=== PATIENT | female | born 1940 | race Caucasian/White ===

== ENCOUNTER → 2016-11-26 | Outpatient (CLI) | payer MEDICARE, OTHER ==
[~2016-11-26] MED LIST: ASP81TEC PO; ASPI-9 PO; CALC-80 PO; CYAN10007 PO; DIAZ5TAB PO; ERGO400C PO; FELO10TA31 PO; FLD5TCR PO; LEVO75TA6 PO; LOSA50TA6 PO; LVT.1T PO; MECL25TA3 PO; MELO-195 PO; MULT-608 PO; OMEG1CAP51 PO; OMEG1CAP53 PO; OMEP20TA2 PO; ONDA4TAB8 PO; PNT40TEC PO; SCOP1PAT TD; SIMV20TA3 PO; [UNRECOGNIZED DRUG - CODE] TP
== END ==
LOC: CARD 08:47
PROVIDERS: ATTEND Physician Assistant
DX: I65.23 Occlusion and stenosis of bilateral carotid arteries (principal); I25.10 Atherosclerotic heart disease of native coronary artery without angina pectoris; I10 Essential (primary) hypertension; E78.5 Hyperlipidemia, unspecified
CPT/HCPCS: 93306

== ENCOUNTER 2018-03-15 18:13 | Emergency (ER) | payer MEDICARE, OTHER ==
[~2018-03-15] VITALS: Ht 170.2 cm; Wt 70.3 kg
[~2018-03-15 18:13] MED LIST changes: -SCOP1PAT TD; +SCOP1PAT11 TD
--- NOTE | 2018-03-15 18:34 | ED Cardiac General ---
History of Present Illness General Stated Complaint: BP 224/110 /NAUSEA/DIARRHEA/COUGH Source: patient Exam Limitations: no limitations History of Present Illness Date Seen by Provider: Mar 15, 2018 Time Seen by Provider: 18:19 Initial Comments Patient presents to ER by private conveyance with chief complaint the past couple weeks she's noticed elevated blood pressures anywhere from 150 systolic following up to 200 systolic but tonight she said it was a 214/110 and this concerned her greatly so she decided to come in to be checked out. 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 She went to the walk-in clinic 3 days ago and they did not make any changes to her blood pressure medicine he was not near as high then. She says she's been having run-ins with some family lately this got her very stressed. She also stopped taking her losartan about 3 or 4 months ago because her blood pressure even when she was out working in the yard the normal in the 120s over 60s on just the amlodipine. She says Dr. Klein her primary care doctor is aware that she stop taking the losartan. She has not restarted it yet. She does not have diabetes nor does she ever smoke or use tobacco products. She does use Lipitor because she had some high cholesterol that she just recently started per Dr. Abarca. She also uses 75 g of Synthroid. She's never had a personal or primary family all history of coronary artery disease. She has no stroke or family stroke history. No history of cancer. She's had no weight loss or gain. She's not having any shortness of breath nausea sweats or pains. Allergies and Home Medications Allergies Coded Allergies: guaifenesin (Verified Allergy, Unknown, 05/05/08) hydrocodone (Verified Allergy, Unknown, 05/05/08) iodamide (Verified Allergy, Unknown, 06/16/08) potassium guaiacolsulfonate (Verified Allergy, Unknown, 05/05/08) propoxyphene (Verified Allergy, Unknown, 05/05/08) Home Medications Aspirin 81 Mg Tabec, 81 MG PO DAILY, (Reported) Calcium Carbonate/Vitamin D3 1 Each Tablet, 1 TAB PO BID, (Reported) Diazepam 5 Mg Tablet, 0.5-1 TAB PO Q4H Prescribed by: OLIVIA MCCANN on 02/10/15134 Felodipine 10 Mg Tab.sr.24h, 10 MG PO DAILY, (Reported) Levothyroxine Sodium 75 Mcg Tablet, 75 MCG PO DAILY, (Reported) Losartan Potassium 50 Mg Tablet, 50 MG PO DAILY, (Reported) Meclizine HCl 25 Mg Tablet, 1-2 TAB PO Q6H Prescribed by: OLIVIA MCCANN on 02/10/15134 Meloxicam 15 Mg Tablet, 15 MG PO DAILY, (Reported) [place]-3 Fatty Acids/Fish Oil 1 Each Capsule, 2,000 MG PO DAILY, (Reported) TAKES 2 (1000MG) CAPSULES IN THE MORNING [place]-3 Fatty Acids/Fish Oil 1 Each Capsule, 1,000 MG PO HS, (Reported) Ondansetron 4 Mg Tab.rapdis, 4 MG PO Q4H Prescribed by: OLIVIA MCCANN on 02/10/15134 Scopolamine 1 Each Patch.td72, 1 EACH TD Q72 HOURS Prescribed by: OLIVIA MCCANN on 02/10/15134 Simvastatin 20 Mg Tablet, 20 MG PO HS, (Reported) Patient Home Medication List Home Medication List Reviewed: Yes Review of Systems Review of Systems Constitutional: No chills, No diaphoresis, No fever; malaise EENTM: No Blurred Vision, No Double Vision Respiratory: Denies Cough, Denies Shortness of Air Cardiovascular: Denies Chest Pain, Denies Edema, Denies Irregular Heart Rate, Denies Lightheadedness, Denies Palpitations, Denies Syncope Gastrointestinal: Denies Abdominal Pain, Denies Constipated, Denies Diarrhea, Denies Nausea Genitourinary: Denies Burning, Denies Discharge Musculoskeletal: No back pain, No joint pain Skin: No pruritus, No rash Past Lqoxbea-Vpkskj-Ljypxu Hx Patient Social History Alcohol Use: Denies Use Recreational Drug Use: No Smoking Status: Never a Smoker 2nd Hand Smoke Exposure: Yes Recent Foreign Travel: No Contact w/Someone Who Travel: No Immunizations Up To Date Tetanus Booster (TDap): More than 5yrs PED Vaccines UTD: Yes Date of Pneumonia Vaccine: Jan 12, 2012 Date of Influenza Vaccine: Apr 13, 2013 Past Medical History Abdominal, Breast, Eye Surgery, Orthopedic Pneumonia, COPD Hypertension Female Reproductive Disorders: Denies 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 0oz. [id number]; BMI Method: General Appearance: No Apparent Distress, WD/WN, Anxious HEENT: PERRL/EOMI, Normal ENT Inspection, Pharynx Normal, Moist Mucous Membranes Neck: Full Range of Motion, Normal Inspection, Non Tender Respiratory: Chest Non Tender, Lungs Clear, Normal Breath Sounds, No Accessory Muscle Use, No Respiratory Distress Cardiovascular: Regular Rate, Rhythm, No Edema, Normal Peripheral Pulses Gastrointestinal: Non Tender, Soft Extremity: Normal Capillary Refill, Non Tender, No Calf Tenderness Neurologic/Psychiatric: Alert, Oriented x3, No Motor/Sensory Deficits Skin: Normal Color, Warm/Dry Progress/Results/Core Measures Results/Orders Lab Results Laboratory Tests Test 03/15/18 18:30 03/15/18 18:41 Range/Units White Blood Count 6.8 4.3-11.0 10^3/uL Red Blood Count 4.69 4.35-5.85 10^6/uL Hemoglobin 14.1 11.5-16.0 G/DL Hematocrit 44 35-52 % Mean Corpuscular Volume 94 80-99 FL Mean Corpuscular Hemoglobin 30 25-34 PG Mean Corpuscular Hemoglobin Concent 32 32-36 G/DL Red Cell Distribution Width 13.3 10.0-14.5 % Platelet Count 229 130-400 10^3/uL Mean Platelet Volume 11.0 H 7.4-10.4 FL Neutrophils (%) (Auto) 64 42-75 % Lymphocytes (%) (Auto) 26 12-44 % Monocytes (%) (Auto) 8 0-12 % Eosinophils (%) (Auto) 1 0-10 % Basophils (%) (Auto) 1 0-10 % Neutrophils # (Auto) 4.4 1.8-7.8 X 10^3 Lymphocytes # (Auto) 1.8 1.0-4.0 X 10^3 Monocytes # (Auto) 0.6 0.0-1.0 X 10^3 Eosinophils # (Auto) 0.1 0.0-0.3 10^3/uL Basophils # (Auto) 0.0 0.0-0.1 10^3/uL Sodium Level 136 135-145 MMOL/L Potassium Level 4.1 3.6-5.0 MMOL/L Chloride Level 100 98-107 MMOL/L Carbon Dioxide Level 25 21-32 MMOL/L Anion Gap 11 5-14 MMOL/L Blood Urea Nitrogen 17 7-18 MG/DL Creatinine 1.04 0.60-1.30 MG/DL Estimat Glomerular Filtration Rate 51 BUN/Creatinine Ratio 16 Glucose Level 110 H 70-105 MG/DL Calcium Level 9.5 8.5-10.1 MG/DL Corrected Calcium 9.2 8.5-10.1 MG/DL Total Bilirubin 0.6 0.1-1.0 MG/DL Aspartate Amino Transf (AST/SGOT) 21 5-34 U/L Alanine Aminotransferase (ALT/SGPT) 6 0-55 U/L Alkaline Phosphatase 99 40-136 U/L Troponin I < 0.30 <0.30 NG/ML B-Type Natriuretic Peptide 47.2 <100.0 PG/ML Total Protein 7.9 6.4-8.2 GM/DL Albumin 4.4 3.2-4.5 GM/DL Urine Color YELLOW Urine Clarity CLEAR Urine pH 6 5-9 Urine Specific [place] 1.015 L 1.016-1.022 Urine Protein NEGATIVE NEGATIVE Urine Glucose (UA) NEGATIVE NEGATIVE Urine Ketones 3+ H NEGATIVE Urine Nitrite NEGATIVE NEGATIVE Urine Bilirubin NEGATIVE NEGATIVE Urine Urobilinogen NORMAL NORMAL MG/DL Urine Leukocyte Esterase 2+ H NEGATIVE Urine RBC (Auto) 2+ H NEGATIVE Urine RBC 2-5 H /HPF Urine WBC 5-10 H /HPF Urine Squamous Epithelial Cells 5-10 /HPF Urine Crystals NONE /LPF Urine Bacteria FEW H /HPF Urine Casts NONE /LPF Urine Mucus NEGATIVE /LPF Urine Culture Indicated YES My Orders Orders - BAKARI GONZALES Troponin I (03/15/18 18:26) Chest 1 View, Ap/Pa Only (03/15/18 18:26) Ekg Tracing (03/15/18 18:26) Saline Lock/Iv-Start (03/15/18 18:26) Monitor-Rhythm Ecg Trace Only (03/15/18 18:26) BNP (03/15/18 18:26) Cbc With Automated Diff (03/15/18 18:26) Comprehensive Metabolic Panel (03/15/18 18:26) Ua Culture If Indicated (03/15/18 18:26) Urine Culture (03/15/18 18:41) Metoprolol Tartrate Injection (Lopressor (03/15/18 19:45) Ceftriaxone For Iv Use (Rocephin For I (03/15/18 20:00) Medications Given in ED Current Medications Medications Dose Ordered Sig/Cici Route Start Time Stop Time Status Last Admin Dose Admin Metoprolol Tartrate 5 mg ONCE ONCE IV 03/15/18 19:45 03/15/18 19:46 DC 03/15/18 19:44 5 MG Vital Signs/I&O 03/15/18 18:16 Temp 98.2 Pulse 99 Resp 20 B/P (MAP) 227/133 (164) Pulse Ox 98 Progress Progress Note #1: Time: 18:36 Progress Note Per her history this is been going on the past few weeks. We will recommend a good 30 minutes of rest in a quiet room and monitor her blood pressure. As long as it is heading down from 227/110 and will probably just reinitiate her losartan dose tonight and have her start that again in the morning at her regular home dose and keep her follow-up appointment for tomorrow afternoon with Dr. Klein. She is waiting we will also check EKG, troponin, basic labs and make sure there is no evidence of acute kidney failure or other signs of infection or anything else might be contributing to her sudden hypertension. Could be life stressors combined with her recent discontinuation of the losartan. At this time is only asymptomatic hypertension as she is not having any neurologic findings or chest pain or other concerning features. Echocardiogram by Dr. Abarca November 2016: Left ventricular cavity size is normal with increased wall thickness, hypertrophy and EF of 60-65%. Right and left atrium dilatation. Cardiac catheterization by Dr. Abarca 2012 demonstrates 30% stenosis in the mid LAD, 40% stenosis in the mid circumflex artery. Nonobstructive disease. Normal abdominal aorta and aortic root. Progress Note #2: Time: 20:09 Progress Note Plan to give the patient some Rocephin 100 mg and losartan and send her home to follow up with her primary care doctor in the morning. We'll give her a prescription for losartan as well. Initial ECG Impression Date: Mar 15, 2018 Initial ECG Impression Time: 18:28 Initial ECG Rate: 81 Initial ECG Rhythm: Normal Sinus Initial ECG Intervals: QT (506) Initial ECG Impression: Nonspecific Changes Initial ECG Comparisson: Unchanged Comment Ventricular hypertrophy. Right bundle branch block. No ST elevation or depression. Diagnostic Imaging Diagonstic Imaging: Xray Plain Films/CT/US/NM/MRI: chest (1v) Comments NAME: CARLOTA SCHRADER [facility] REC#: [id number] PHYSICIAN: BAKARI GONZALES MD CC: CHANDNI ANDERS MD; BAKARI GONZALES Page 1 of 1 RADIOLOGY REPORT [facility] [place] [place] CC: CHANDNI ANDRES MD; BAKARI GONZALES Page 1 of 1 RADIOLOGY REPORT NAME: CARLOTA SCHRADER [facility] REC#: [id number] PT STATUS: REG ER : 1940 PHYSICIAN: BAKARI GONZALES MD ADMIT DATE: 03/15/18/ER Signed Date of Exam: 03/15/18 CHEST 1 VIEW, AP/PA ONLY INDICATION: Elevated blood pressure. COMPARISON: Comparison is made with a previous chest radiograph from February 09, 2015. FINDINGS: The lungs appear hyperinflated suggesting air trapping and underlying COPD. There is no focal infiltrate or consolidation. There is no effusion or pneumothorax. Heart size appears appropriate, and pulmonary vascularity appears appropriate without evidence of failure. IMPRESSION: 1. Pulmonary hyperinflation suggests air trapping and possible underlying COPD. No acute superimposed cardiopulmonary process evident. Dictated by: Dictated on workstation # [id number] Dict: 03/15/181854 Trans: 03/15/181905 Interpreted by: CHANDNI ANDERS MD Electronically signed by: CHANDNI ANDERS MD 03/15/181905 \\ Reviewed: Reviewed by Me Departure Impression Primary Impression: Asymptomatic hypertensive urgency Additional Impression: UTI (urinary tract infection) Qualified Codes: N30.01 - Acute cystitis with hematuria Disposition: HOME, SELF-CARE Condition: Improved (ERASED) Departure-Patient Inst. Decision time for Depature: 20:09 Referrals: LASHONDA KLEIN DO (PCP/Family) Primary Care Physician Patient Instructions: High Blood Pressure (DC) Add. 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 Follow up with Dr Klein at the scheduled appt. Scripts Losartan Potassium (Losartan Potassium) 100 Mg Tablet 100 MG PO DAILY for 7 Days, #7 TAB 0 Refills Prov: BAKARI GONZALES 03/15/18 Copy Copies To 1: LASHONDA KLEIN TITUS J Mar 15, 2018 18:34
[2018-03-15 18:42] LABS: BASOPHILS % (AUTO) 1 % (0-10); EOSINOPHILS # (AUTO) 0.1 10^3/uL (0.0-0.3); EOSINOPHILS % (AUTO) 1 % (0-10); HEMATOCRIT 44 % (35-52); HEMOGLOBIN 14.1 G/DL (11.5-16.0); LYMPHOCYTES # (AUTO) 1.8 X 10^3 (1.0-4.0); LYMPHOCYTES % (AUTO) 26 % (12-44); MEAN CORPUSCULAR HEMOGLOBIN 30 PG (25-34); MEAN CORPUSCULAR HGB CONC 32 G/DL (32-36); MEAN CORPUSCULAR VOLUME 94 FL (80-99); MONOCYTES # (AUTO) 0.6 X 10^3 (0.0-1.0); MONOCYTES % (AUTO) 8 % (0-12); NEUTROPHILS # (AUTO) 4.4 X 10^3 (1.8-7.8); NEUTROPHILS % (AUTO) 64 % (42-75); PLATELET COUNT 229 10^3/uL (130-400); RED BLOOD COUNT 4.69 10^6/uL (4.35-5.85); RED CELL DISTRIBUTION WIDTH 13.3 % (10.0-14.5); WHITE BLOOD COUNT 6.8 10^3/uL (4.3-11.0)
[2018-03-15 18:50] LABS: BILIRUBIN,URINE NEGATIVE (NEGATIVE); CLARITY,URINE CLEAR; COLOR,URINE YELLOW; GLUCOSE, URINE (UA) NEGATIVE (NEGATIVE); KETONES,URINE 3+ (NEGATIVE); LEUKOCYTE ESTERASE ,URINE 2+ (NEGATIVE); NITRITE,URINE NEGATIVE (NEGATIVE); PH,URINE 6 (5-9); PROTEIN,URINE NEGATIVE (NEGATIVE); UROBILINOGEN,URINE NORMAL (NORMAL)
[2018-03-15 18:58] LABS: BACTERIA,URINE FEW /HPF
--- NOTE | 2018-03-15 19:01 | Diagnostic Imaging Report ---
INDICATION: Elevated blood pressure. COMPARISON: Comparison is made with a previous chest radiograph from February 09, 2015. FINDINGS: The lungs appear hyperinflated suggesting air trapping and underlying COPD. There is no focal infiltrate or consolidation. There is no effusion or pneumothorax. Heart size appears appropriate, and pulmonary vascularity appears appropriate without evidence of failure. IMPRESSION: 1. Pulmonary hyperinflation suggests air trapping and possible underlying COPD. No acute superimposed cardiopulmonary process evident. Dictated by: Dictated on workstation # [id number]
[2018-03-15 19:02] LABS: ALBUMIN 4.4 GM/DL (3.2-4.5); BILIRUBIN,TOTAL 0.6 MG/DL (0.1-1.0); CALCIUM 9.5 MG/DL (8.5-10.1); CREATININE SERUM 1.04 MG/DL (0.60-1.30); POTASSIUM 4.1 MMOL/L (3.6-5.0); TOTAL PROTEIN 7.9 GM/DL (6.4-8.2)
[2018-03-15] MEDS ORDERED: meTOprolol 5 MG/5 ML (LOPRESSOR) VIAL IV ONE (19:45)
[2018-03-15] MEDS ORDERED: cefTRIAXone FOR IV USE 1,000 MG in NS (IVPB) 50 ML IV ONE (20:00)
[2018-03-15] MEDS ORDERED: LOSARTAN 100 MG (COZAAR) TABLET PO ONE (20:15)
[2018-03-15] MEDS ORDERED: LOSA100T8 PO (20:17)
[2018-03-15] MEDS ORDERED: CEPH-507 PO (20:37)
[2018-03-15 20:39] VITALS: BP 207/105
== END 2018-03-15 20:40 | disposition home or self-care (01) ==
LOC: EDUNIT# 18:13 → ER 18:14
DX: I16.0 Hypertensive urgency (principal); N39.0 Urinary tract infection, site not specified; E78.00 Pure hypercholesterolemia, unspecified; J44.9 Chronic obstructive pulmonary disease, unspecified; I10 Essential (primary) hypertension; E03.9 Hypothyroidism, unspecified; K21.9 Gastro-esophageal reflux disease without esophagitis; Z87.19 Personal history of other diseases of the digestive system; Z82.49 Family history of ischemic heart disease and other diseases of the circulatory system; Z80.0 Family history of malignant neoplasm of digestive organs; Z79.82 Long term (current) use of aspirin; Z88.5 Allergy status to narcotic agent; Z88.8 Allergy status to other drugs, medicaments and biological substances; Z77.22 Contact with and (suspected) exposure to environmental tobacco smoke (acute) (chronic); Z87.01 Personal history of pneumonia (recurrent)
CPT/HCPCS: 36415; 71045; 80053; 81000; 83880; 84484; 85025; 87077; 87088; 93005; 93041

== ENCOUNTER 2018-12-15 05:37 | Outpatient (CLI) | payer MEDICARE, OTHER ==
[~2018-12-15] VITALS: Ht 170.2 cm; Wt 70.3 kg
[~2018-12-15 05:37] MED LIST changes: +CEPH-507 PO; +LOSA100T57 PO
[2018-12-15] MEDS ORDERED: ASPI-999 PO (11:40)
[2018-12-15] MEDS ORDERED: FELO5TAB3 PO (11:40)
[2018-12-15] MEDS ORDERED: CALC600T12 PO (11:40)
[2018-12-15] MEDS ORDERED: LEVO75TA6 PO (11:40)
[2018-12-15] MEDS ORDERED: MULT-351 PO (11:40)
[2018-12-15] MEDS ORDERED: OMEG-77 PO (11:40)
== END 2018-12-15 11:44 | disposition home or self-care (01) ==
LOC: PREOP 05:37
PROVIDERS: ATTEND Specialist
DX: Z01.818 Encounter for other preprocedural examination (principal)

== ENCOUNTER 2018-12-17 08:33 | Day surgery (SDC) | payer MEDICARE, OTHER ==
[~2018-12-17] VITALS: Ht 170.2 cm; Wt 70.3 kg
[~2018-12-17 08:33] MED LIST changes: +ASPI-999 PO; +CALC600T12 PO; +FELO5TAB3 PO; +MULT-351 PO; +OMEG-77 PO
[2018-12-17 08:45] VITALS: BP 198/93
[2018-12-17] MEDS ORDERED: LIDOCAINE PF 1% 2 ML AMP IR PRN (08:45)
[2018-12-17] MEDS ORDERED: TIMOLOL MALEATE 0.5% 5 ML (TIMOPTIC) BTL OU PRN (08:45)
[2018-12-17] MEDS ORDERED: MOXIFLOXACIN OPHTH SOLN 5 MG/ML 0.3 ML SYRINGE OP ONE (08:45)
[2018-12-17] MEDS ORDERED: POVIDONE (BETADINE) OPHTH SOLN 5% 30 ML OP ONE (08:45)
[2018-12-17] MEDS: TETRACAINE 0.5% OPHTH SOLN 4 ML BTL (SINGLE DOSE ONLY) OU PRN ×4 (08:48→09:12)
[2018-12-17] MEDS: PHENYLEPHRINE 10% OPHTH (NEO-SYN) 5 ML BTL OU SCH ×3 (08:58→09:12)
[2018-12-17] MEDS: CYCLOPENTOLATE 1% (CYCLOGYL) 2 ML DROPS OP SCH ×3 (08:58→09:12)
[2018-12-17] MEDS ORDERED: MIDAZOLAM 2 MG/2 ML (VERSED) VIAL ONE (09:07)
--- NOTE | 2018-12-17 09:32 | Ophthalmologist Pre-Op Note ---
Pre-Operative Progress Note H&P Reviewed The H&P was reviewed, patient examined and no changes noted. Date H&P Reviewed: Dec 17, 2018 Time H&P Reviewed: 09:32 Pre-Op Dx Cataract, Left Eye ALFONZO MEDEIROS MD Dec 17, 2018 09:32
[2018-12-17] MEDS ORDERED: acetaZOLAMIDE ER 500 MG CAP (DIAMOX SEQUELS) PO ONE (10:00)
--- NOTE | 2018-12-17 10:02 | Ophthalmology Operative Report ---
Cataract removal/placement IOL PREOPERATIVE DIAGNOSIS: Cataract Left Eye POSTOPERATIVE DIAGNOSIS: Cataract Left Eye PROCEDURE: Cataract removal and placement of posterior chamber implant, left eye SURGEON: Lyndon Medeiros ANESTHESIA: Topical with sedation COMPLICATIONS: None ESTIMATED BLOOD LOSS: Minimal DESCRIPTION OF PROCEDURE: After proper informed consent was obtained, the patient, a 78 female, was taken to the Operating Room and the left eye was anesthetized with tetracaine. The left eye was then prepped and draped in the usual manner. A wire lid speculum was placed. A paracentesis was made at the left hand position. Preservative free lidocaine was injected into the anterior chamber followed by viscoelastic. A clear corneal incision was made in the temporal position. A capsulorrhexis was preformed and the central nuclear and cortical material were removed. The posterior capsule was polished and an Ga 19.5 [id number] was placed into the capsular bag. The residual viscoelastic was aspirated and balanced saline solution was injected into the anterior chamber. Moxifloxacin was injected into the anterior chamber. The wound was checked and found to be water tight. The patient tolerated the procedure well without complications. LYNDON MEDEIROS MD Dec 17, 2018 10:02
[2018-12-17 10:09] VITALS: BP 198/83
--- NOTE | 2018-12-17 13:19 | Anesthesia-General Post-Op ---
MAC Patient Condition Mental Status/LOC: Same as Preop Cardiovascular: Satisfactory Nausea/Vomiting: Absent Respiratory: Satisfactory Pain: Controlled Complications: Absent Post Op Complications Complications None Follow Up Care/Instructions Patient Instructions None needed. Anesthesiology Discharge Order Discharge Order Patient was seen after the procedure and she was doing well, no complaints, stable vital signs, no apparent adverse anesthesia problems. CURT CAMEJO DO Dec 17, 2018 13:19
== END 2018-12-17 10:09 | disposition home or self-care (01) ==
LOC: SDC 08:33
PROVIDERS: ATTEND Specialist
DX: H25.12 Age-related nuclear cataract, left eye (principal); M19.90 Unspecified osteoarthritis, unspecified site; E03.9 Hypothyroidism, unspecified; I10 Essential (primary) hypertension; E78.00 Pure hypercholesterolemia, unspecified; Z88.3 Allergy status to other anti-infective agents; Z83.511 Family history of glaucoma; Z80.0 Family history of malignant neoplasm of digestive organs; Z79.82 Long term (current) use of aspirin; Z79.899 Other long term (current) drug therapy

== ENCOUNTER → 2020-12-19 | Outpatient (CLI) | payer MEDICARE, OTHER ==
[~2020-12-19] MED LIST changes: -CALC600T12 PO; +CALC600T91 PO; -FELO5TAB3 PO; +HOLD METFORMIN - RECEIVED CONTRAST 20 ML VIAL IV SCH; +IOHEXOL 350 MG/ML 100 ML (OMNIPAQUE 350) VIAL IV ONE; +NS 100 ML (IVPB) BAG IV ONE
--- NOTE | 2020-12-19 09:19 | Diagnostic Imaging Report ---
PROCEDURE: CT neck soft tissue with contrast. TECHNIQUE: Multiple contiguous axial images were obtained through the neck after the administration of contrast. Auto Exposure Controls were utilized during the CT exam to meet ALARA standards for radiation dose reduction. INDICATION: Right-sided swelling. Symptoms began 3 months ago. COMPARISON: 06/21/2007. Findings: A partially necrotic, pathologically enlarged lymph node is seen in the right level 2 station measuring 2.2 x 2.1 cm and 3.5 cm craniocaudal. Scattered mildly prominent cervical lymph nodes are seen bilaterally. No soft tissue mass or fluid collection is seen in the neck. The posterior nasopharynx and oropharynx demonstrate appropriate symmetry. Bilateral tonsilloliths are noted in the palatine tonsils. There is no displacement of the parapharyngeal fat planes. There is no abnormal process evident within the prevertebral or retropharyngeal space. There is no evidence of abnormal thickening of the epiglottis or aryepiglottic folds. The vocal folds appear symmetric. The parotid, submandibular and thyroid gland are unremarkable. The vascular structures the neck demonstrate no evidence of high-grade stenosis on this nondedicated exam. The visualized lung apices are clear. The visualized intracranial contents demonstrate no evidence of pathologic intracranial enhancement or intracranial mass effect. Visualized orbital contents are unremarkable. The visualized paranasal sinuses are clear. The mastoids and middle ears are clear. No acute osseous abnormality in the cervical spine. Impression: 1. Pathologically enlarged lymph node in the right level 2 cervical lymph node chain. This demonstrates partial necrosis. No mass is seen within the aerodigestive tract. Recommend correlation with patient history and if indicated biopsy/FNA of the lymph node under ultrasound guidance. 2. Unremarkable aerodigestive tract. No discrete mass or evidence of airway compromise. Dictated by: Dictated on workstation # [id number]
== END ==
LOC: RAD 08:28
PROVIDERS: ATTEND Internal Medicine
DX: R22.1 Localized swelling, mass and lump, neck (principal)
CPT/HCPCS: 70491

== ENCOUNTER → 2020-12-24 | Day surgery (SDC) | payer MEDICARE, OTHER ==
[~2020-12-24] MED LIST changes: -HOLD METFORMIN - RECEIVED CONTRAST 20 ML VIAL IV SCH; -IOHEXOL 350 MG/ML 100 ML (OMNIPAQUE 350) VIAL IV ONE; +LIDOCAINE 1% INJ 20 ML 20 ML VIAL INJ ONE; -NS 100 ML (IVPB) BAG IV ONE
--- NOTE | 2020-12-24 14:02 | Diagnostic Imaging Report ---
INDICATION: Large right neck lymph node. Patient presents for ultrasound-guided biopsy. Patient brought to the procedure and placed on table in the supine position. Ultrasound imaging of the right neck was performed to evaluate appropriate entry site. Right neck was then prepped and draped in usual sterile fashion. Small amount of 1% lidocaine was utilized for local anesthesia. Total of 4 passes were made into the enlarged right neck lymph node utilizing a 18-gauge Temno needle. Core biopsies were obtained. Needle was removed and hemostasis was obtained. Patient tolerated the procedure well and left the department in stable condition. IMPRESSION: Successful ultrasound guided core biopsy of enlarged right neck lymph node. Pathology results are currently pending. Dictated by: Dictated on workstation # [id number]
== END ==
LOC: RAD 12:30
PROVIDERS: ATTEND Internal Medicine
DX: C77.0 Secondary and unspecified malignant neoplasm of lymph nodes of head, face and neck (principal)
CPT/HCPCS: 76942; 88184; 88185; 88305; 88342; 88344

== ENCOUNTER → 2021-01-01 | Outpatient (CLI) | payer MEDICARE, OTHER ==
[~2021-01-01] MED LIST changes: -LIDOCAINE 1% INJ 20 ML 20 ML VIAL INJ ONE
--- NOTE | 2021-01-01 09:15 | Diagnostic Imaging Report ---
INDICATION: Cough. COMPARISON: 03/15/2018. FINDINGS: The heart size is normal. The mediastinum is unremarkable. There is no pleural effusion, pneumothorax, or pneumonia. There does appear to be some air trapping. IMPRESSION: Air trapping, likely reflecting some degree of COPD; otherwise, unremarkable single view chest. Dictated by: Dictated on workstation # [id number]
== END ==
LOC: RAD 08:25
PROVIDERS: ATTEND Internal Medicine
DX: R05 Cough (principal)
CPT/HCPCS: 71045

== ENCOUNTER → 2021-01-15 | Outpatient (CLI) | payer MEDICARE, OTHER ==
[~2021-01-15] MED LIST changes: +SCOP1PAT10 TD; -SCOP1PAT11 TD
--- NOTE | 2021-01-15 14:14 | Diagnostic Imaging Report ---
INDICATION: Squamous cell carcinoma of the head and neck, initial staging. Serum blood glucose level at the time of injection is 106 mg/dL. Patient was administered 14.8 mCi F-18 FDG intravenously in the right antecubital location and PET imaging was performed from the top of skull to mid thighs. Noncontrast CT was also performed for attenuation correction and anatomic correlation. There are no prior PET/CT studies available for comparison. Comparison is made with the CT neck study from 12/19/2020. There is symmetric activity throughout the brain. Hypermetabolic lymph node in the right neck is noted with an SUV max proximates 13. This is the recently biopsied neck lymph node. There is also a hypermetabolic focus in the region of the base of the tongue on the right side with an SUV max of 8.8. Direct visualization of this area is recommended. No other metabolic foci in the neck is identified. There is some mildly hypermetabolic foci in the jurgen bilaterally with an SUV max of 4 on the right and 4 on the left, indeterminate. No hypermetabolic pulmonary parenchymal foci are identified. There is physiologic activity throughout the gastrointestinal and genitourinary tracts of abdomen and pelvis. No suspicious hypermetabolic foci are identified. IMPRESSION: Hypermetabolic right neck lymph node correlating with the large node that was recently biopsied. There is an area of hypermetabolism near the base of the tongue on the right side which could represent a site of primary malignancy. Direct visualization is recommended. Otherwise PET/CT study is unremarkable apart from small mildly hypermetabolic foci in the jurgen bilaterally which are indeterminate. Dictated by: Dictated on workstation # [id number]
== END ==
LOC: RAD 09:45
PROVIDERS: ATTEND Internal Medicine Hematology & Oncology
DX: C76.0 Malignant neoplasm of head, face and neck (principal)
CPT/HCPCS: 78815; A9552

== ENCOUNTER 2021-01-16 10:12 | Outpatient (RCR) | payer MEDICARE, OTHER ==
[2021-03-12] MEDS ORDERED: CEPH500T PO (06:50)
== END 2021-04-08 | disposition home or self-care (01) ==
LOC: ONC 10:12
PROVIDERS: ATTEND Internal Medicine Hematology & Oncology
DX: C44.42 Squamous cell carcinoma of skin of scalp and neck (principal); I10 Essential (primary) hypertension; J44.9 Chronic obstructive pulmonary disease, unspecified; E03.9 Hypothyroidism, unspecified; E78.2 Mixed hyperlipidemia
CPT/HCPCS: 99213; 99214

== ENCOUNTER 2021-03-12 04:41 | Emergency (ER) | payer MEDICARE, OTHER ==
[~2021-03-12] VITALS: Ht 172.7 cm; Wt 72.6 kg
--- NOTE | 2021-03-12 05:28 | ED EENT ---
History of Present Illness General Chief Complaint: Post OP Complications/Pain Stated Complaint: POST OP THROAT SURGERY-BLEEDING Nursing Triage Note: Pt reports that she awoke this morning spitting up blood. She is s/p cx sx removing spots from tongue, lymph nodes, and tonsils. She noticed the bleeding 2 days ago and saw her specialist 03/11 for suture removal. 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 She had surgery on March [address] Rodrigue Garcia in [place] for resection of the right tonsil and part of the tongue. 13 lymph nodes were also removed. Patient noted some bleeding 2 days ago. She had follow-up yesterday to have sutures removed. Tonight she noted some bleeding around 0030 and coughed up a clot. She took ice water. She coughed up another clot at 0430. She therefore came to the ER for further evaluation. She denies any si gnificant pain. She states her pain with swallowing has significantly decreased since surgery. She does feel weak. Her primary care provider is Dr. Klein. She denies use of any blood thinning medications. Allergies and Home Medications Allergies Coded Allergies: Iodinated Contrast Media (Verified Allergy, Mild, ITCHING, 12/15/18) acetaminophen (Verified Allergy, Unknown, 03/12/21) propoxyphene (Verified Allergy, Unknown, 03/12/21) Patient Home Medication List Home Medication List Reviewed: Yes Aspirin (Aspirin) 81 Mg Tab.chew, 81 MG PO DAILY, (Reported) Entered as Reported by: PAZ SIMMONS on 12/15/18 1140 Calcium Carbonate (Calcium) 600 Mg Tablet, 600 MG PO DAILY, (Reported) Entered as Reported by: PAZ SIMMONS on 12/15/18 1140 Felodipine (Felodipine ER) 5 Mg Tab.er.24h, 5 MG PO DAILY, (Reported) Entered as Reported by: PAZ SIMMONS on 12/15/18 1140 Levothyroxine Sodium (Levothyroxine Sodium) 75 Mcg Tablet, 75 MCG PO DAILY, (Reported) Entered as Reported by: PAZ SIMMONS on 12/15/18 1140 Multivitamin (Daily Vitamin Formula) 1 Each Tablet, 1 EACH PO DAILY, (Reported) Entered as Reported by: PAZ SIMMONS on 12/15/18 1140 [place]-3 Fatty Acids/Fish Oil (Fish Oil 1,000 mg Softgel) 1 Each Capsule, 1 EACH PO DAILY, (Reported) Entered as Reported by: PAZ SIMMONS on 12/15/18 1140 Review of Systems Review of Systems Constitutional: see HPI Eyes: No Symptoms Reported Ears: No Symptoms Reported Nose: no symptoms reported Mouth: see HPI Throat: see HPI Respiratory: no symptoms reported Cardiovascular: no symptoms reported Gastrointestinal: no symptoms reported : No Musculoskeletal: no symptoms reported Skin: no symptoms reported Neurological: No Symptoms Reported Hematologic/Lymphatic: No Symptoms Reported Immunological/Allergic: no symptoms reported Past Hrbwgmp-Kjucke-Gnnkob Hx Patient Social History Tobacco Use?: No Use of E-Cig and/or Vaping dev: No Substance use?: No Alcohol Use?: No Pt feels they are or have been: No Immunizations Up To Date Tetanus Booster (TDap): More than 5yrs PED Vaccines UTD: Yes Influenza Vaccine Up-to-Date: Yes; Up-to-Date First/Initial COVID19 Vaccinat: none Past Medical History Surgery/Hospitalization HX: cx removal of tonsil, tongue, and lymph nodes 03/01/21 Surgeries: Yes (RIGHT SHOULDER PIN -2005, X2 BIOPSIES RIGHT BREAST, HERNIA REPAIR, CATARACT) Abdominal, Breast, Eye Surgery, Orthopedic, Tonsillectomy (Right neck dissection with right tonsillectomy, partial tongue resection, and resection of 13 lymph nodes.) Respiratory: Yes Pneumonia, COPD Cardiac: Yes Hypertension Neurological: No 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 Sexually Transmitted Disease: No HIV/AIDS: No Gastrointestinal: Yes Gastroesophageal Reflux, Hiatal Hernia Musculoskeletal: Yes Arthritis Endocrine: Yes Hypothyroidsim Cataract Loss of Vision: Denies Hearing Impairment: Denies Cancer: No Psychosocial: No Integumentary: No Blood Disorders: No Adverse Reaction/Blood Tranf: No Family Medical History Cancer of colon 03 MOTHER Cataract 03 MOTHER Heart disease 09 BROTHER 09 SISTER Kidney disease 09 SISTER Stroke 03 FATHER Physical Exam Vital Signs Vital Signs - First Documented 03/12/21 04:49 Temp 36.4 Pulse 89 Resp 24 B/P (MAP) 159/82 (107) Pulse Ox 100 O2 Delivery Room Air Height, Weight, BMI Height: 5'7.00" Weight: 155lbs. 0.0oz. [id number]; 24.00 BMI Method:Stated General Appearance: WD/WN, no apparent distress, other (Appears somewhat uncomfortable) Eyes: bilateral eye normal inspection, bilateral eye PERRL, bilateral eye EOMI Ears: bilateral ear auricle normal Nose: normal inspection; No active bleeding Mouth/Throat: other (Right tonsillar wound with dark-colored blood on the surface but no active bleeding. No other sources of active bleeding identified.) Neck: other (Incision clean, dry, and intact. 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, no motor/sensory deficits, alert, oriented x 3, other (Slightly anxious) Skin: normal color, warm/dry, ecchymosis Progress/Results/Core Measures Results/Orders Lab Results Laboratory Tests Test 03/12/21 05:20 03/12/21 05:30 Range/Units White Blood Count 4.5 4.3-11.0 10^3/uL Red Blood Count 4.28 3.80-5.11 10^6/uL Hemoglobin 12.8 11.5-16.0 g/dL Hematocrit 39 35-52 % Mean Corpuscular Volume 92 80-99 fL Mean Corpuscular Hemoglobin 30 25-34 pg Mean Corpuscular Hemoglobin Concent 33 32-36 g/dL Red Cell Distribution Width 13.6 10.0-14.5 % Platelet Count 341 130-400 10^3/uL Mean Platelet Volume 10.5 9.0-12.2 fL Immature Granulocyte % (Auto) 1 % Neutrophils (%) (Auto) 55 42-75 % Lymphocytes (%) (Auto) 29 12-44 % Monocytes (%) (Auto) 11 0-12 % Eosinophils (%) (Auto) 4 0-10 % Basophils (%) (Auto) 1 0-10 % Neutrophils # (Auto) 2.5 1.8-7.8 10^3/uL Lymphocytes # (Auto) 1.3 1.0-4.0 10^3/uL Monocytes # (Auto) 0.5 0.0-1.0 10^3/uL Eosinophils # (Auto) 0.2 0.0-0.3 10^3/uL Basophils # (Auto) 0.0 0.0-0.1 10^3/uL Immature Granulocyte # (Auto) 0.0 0.0-0.1 10^3/uL Prothrombin Time 12.9 12.2-14.7 SEC INR Comment 0.9 0.8-1.4 Activated Partial Thromboplast Time 35 24-35 SEC Sodium Level 138 135-145 MMOL/L Potassium Level 3.6 3.6-5.0 MMOL/L Chloride Level 104 98-107 MMOL/L Carbon Dioxide Level 23 21-32 MMOL/L Anion Gap 11 5-14 MMOL/L Blood Urea Nitrogen 12 7-18 MG/DL Creatinine 0.76 0.60-1.30 MG/DL Estimat Glomerular Filtration Rate 73 BUN/Creatinine Ratio 16 Glucose Level 107 H 70-105 MG/DL Calcium Level 9.1 8.5-10.1 MG/DL Corrected Calcium 9.6 8.5-10.1 MG/DL Magnesium Level 1.7 1.6-2.4 MG/DL Total Bilirubin 0.4 0.1-1.0 MG/DL Aspartate Amino Transf (AST/SGOT) 23 5-34 U/L Alanine Aminotransferase (ALT/SGPT) 19 0-55 U/L Alkaline Phosphatase 144 H 40-136 U/L Total Protein 6.8 6.4-8.2 GM/DL Albumin 3.4 3.2-4.5 GM/DL Thyroid Stimulating Hormone (TSH) 6.02 H 0.35-4.94 UIU/ML Free Thyroxine 1.16 0.70-1.48 NG/DL Urine Color YELLOW Urine Clarity CLEAR Urine pH 7.5 5-9 Urine Specific [place] 1.010 L 1.016-1.022 Urine Protein NEGATIVE NEGATIVE Urine Glucose (UA) NEGATIVE NEGATIVE Urine Ketones NEGATIVE NEGATIVE Urine Nitrite NEGATIVE NEGATIVE Urine Bilirubin NEGATIVE NEGATIVE Urine Urobilinogen 0.2 < = 1.0 MG/DL Urine Leukocyte Esterase 2+ H NEGATIVE Urine RBC (Auto) NEGATIVE NEGATIVE Urine RBC NONE /HPF Urine WBC 5-10 H /HPF Urine Squamous Epithelial Cells 5-10 /HPF Urine Crystals NONE /LPF Urine Bacteria TRACE /HPF Urine Casts NONE /LPF Urine Mucus SMALL H /LPF Urine Culture Indicated YES My Orders Orders - NY LOUIS MD Cbc With Automated Diff (03/12/21 05:08) Comprehensive Metabolic Panel (03/12/21 05:08) Magnesium (03/12/21 05:08) Protime With Inr (03/12/21 05:08) Partial Thromboplastin Time (03/12/21 05:08) Ua Culture If Indicated (03/12/21 05:08) Ed Iv/Invasive Line Start (03/12/21 05:08) Thyroid Stimulating Hormone (03/12/21 05:09) Free T4 (Free Thyroxine) (03/12/21 05:09) Urine Culture (03/12/21 05:30) Lactated Ringers (Lr 1000 Ml Iv Solution (03/12/21 06:45) Ceftriaxone 1 Gm Pre-Mix (Rocephin 1 Gm (03/12/21 06:38) Vital Signs/I&O 03/12/21 03/12/21 03/12/21 04:49 05:24 06:15 Temp 36.4 36.4 Pulse 89 89 Resp 24 24 B/P (MAP) 159/82 (107) 159/82 Pulse Ox 100 100 O2 Delivery Room Air Room Air Blood Pressure Mean: 107 Progress Progress Note #1: Time: 05:33 Progress Note There is no active bleeding at this time. We are checking her labs and will monitor her condition during that time. Progress Note #2: Time: 06:43 Progress Note Patient has been resting quietly. Labs were relatively unremarkable. She has noted very little bleeding. On examination she has scant amount of red blood in the mucus at the posterior pharynx. There appears to be no active bleeding at this time. Patient states she would appreciate some IV hydration because she is having difficulty drinking due to pain with swallowing. Urinary tract infection was noted on urinalysis and she is being treated with Rocephin. Departure Impression Primary Impression: Postoperative bleeding from mouth Additional Impressions: Fatigue Qualified Codes: R53.83 - Other fatigue Urinary tract infection Qualified Codes: N39.0 - Urinary tract infection, site not specified Disposition: 01 HOME, SELF-CARE Condition: Improved Departure-Patient Inst. Referrals: LASHONDA KLEIN DO (PCP/Family) Primary Care Physician Patient Instructions: Urinary Tract Infections in Adults Add. Discharge Instructions: Start your antibiotic for urinary tract infection tomorrow. Complete antibiotics as prescribed. Review urine culture results with your primary care provider after 48 hours. I recommend that you adhere to a noncarbonated clear liquid diet today. Then tomorrow advance your diet to a soft, nonabrasive, nonparticulate diet as tolerated. If this is well-tolerated for a few days, gradually advance to a regular diet unless otherwise directed by your surgeon. If you have a return of significant bleeding, sip on ice water as previously directed. If this does not control the bleeding, return to the emergency room. Call with questions or concerns. Return to the ER if you have any other significant concerns or worsening of condition. Scripts Cephalexin (Cephalexin) 500 Mg Tablet 500 MG PO TID, #20 TAB Prov: NY LOUSI MD 03/12/21 NY LOUIS MD Mar 12, 2021 05:28
[2021-03-12 05:30] LABS: BASOPHILS % (AUTO) 1 % (0-10); EOSINOPHILS # (AUTO) 0.2 10^3/uL (0.0-0.3); EOSINOPHILS % (AUTO) 4 % (0-10); HEMATOCRIT 39 % (35-52); HEMOGLOBIN 12.8 g/dL (11.5-16.0); LYMPHOCYTES # (AUTO) 1.3 10^3/uL (1.0-4.0); LYMPHOCYTES % (AUTO) 29 % (12-44); MEAN CORPUSCULAR HEMOGLOBIN 30 pg (25-34); MEAN CORPUSCULAR HGB CONC 33 g/dL (32-36); MEAN CORPUSCULAR VOLUME 92 fL (80-99); MEAN PLATELET VOLUME 10.5 fL (9.0-12.2); MONOCYTES # (AUTO) 0.5 10^3/uL (0.0-1.0); MONOCYTES % (AUTO) 11 % (0-12); NEUTROPHILS # (AUTO) 2.5 10^3/uL (1.8-7.8); NEUTROPHILS % (AUTO) 55 % (42-75); PLATELET COUNT 341 10^3/uL (130-400); WHITE BLOOD COUNT 4.5 10^3/uL (4.3-11.0)
[2021-03-12 05:36] LABS: BILIRUBIN,URINE NEGATIVE (NEGATIVE); CLARITY,URINE CLEAR; COLOR,URINE YELLOW; GLUCOSE, URINE (UA) NEGATIVE (NEGATIVE); KETONES,URINE NEGATIVE (NEGATIVE); LEUKOCYTE ESTERASE ,URINE 2+ (NEGATIVE); NITRITE,URINE NEGATIVE (NEGATIVE); PH,URINE 7.5 (5-9); PROTEIN,URINE NEGATIVE (NEGATIVE)
[2021-03-12 05:42] LABS: ALBUMIN 3.4 GM/DL (3.2-4.5); POTASSIUM 3.6 MMOL/L (3.6-5.0)
[2021-03-12 05:43] LABS: INR 0.9 (0.8-1.4); PROTHROMBIN TIME PATIENT 12.9 SEC (12.2-14.7)
[2021-03-12 05:44] LABS: BACTERIA,URINE TRACE /HPF
[2021-03-12 05:44] LABS: CALCIUM 9.1 MG/DL (8.5-10.1)
[2021-03-12 05:45] LABS: TOTAL PROTEIN 6.8 GM/DL (6.4-8.2)
[2021-03-12 05:46] LABS: BILIRUBIN,TOTAL 0.4 MG/DL (0.1-1.0)
[2021-03-12 05:48] LABS: CREATININE SERUM 0.76 MG/DL (0.60-1.30)
[2021-03-12 05:51] LABS: MAGNESIUM 1.7 MG/DL (1.6-2.4)
[2021-03-12 06:14] LABS: FREE T4 (FREE THYROXINE) 1.16 NG/DL (0.70-1.48)
[2021-03-12] MEDS ORDERED: cefTRIAXone 1 GM PRE-MIX 50 ML IV STA (06:38)
[2021-03-12] MEDS ORDERED: LACTATED RINGERS 1,000 ML IV ONE (06:45)
[2021-03-12] MEDS ORDERED: NS IV 1000 ML 1,000 ML IV SCH (06:45)
[2021-03-12] MEDS ORDERED: NS IV 1000 ML 1,000 ML ONE (06:46)
[2021-03-12] MEDS ORDERED: CEPH500T PO (06:50)
[2021-03-12 08:19] VITALS: BP 169/99
== END 2021-03-12 08:19 | disposition home or self-care (01) ==
LOC: EDUNIT# 04:41 → ER 04:45
DX: K91.840 Postprocedural hemorrhage of a digestive system organ or structure following a digestive system procedure (principal); R53.83 Other fatigue; N39.0 Urinary tract infection, site not specified; J44.9 Chronic obstructive pulmonary disease, unspecified; I10 Essential (primary) hypertension; E03.9 Hypothyroidism, unspecified; Z79.890 Hormone replacement therapy; Z79.82 Long term (current) use of aspirin; Z79.899 Other long term (current) drug therapy
CPT/HCPCS: 36415; 80053; 81000; 83735; 84439; 84443; 85025; 85610; 85730; 87088

== ENCOUNTER 2021-04-09 12:43 | Outpatient (RCR) | payer MEDICARE, OTHER ==
[~2021-04-09 12:43] MED LIST changes: +CEPH500T PO
== END 2021-04-12 | disposition home or self-care (01) ==
PROVIDERS: ATTEND Otolaryngology
DX: M25.611 Stiffness of right shoulder, not elsewhere classified (principal); Z85.09 Personal history of malignant neoplasm of other digestive organs

== ENCOUNTER 2021-05-10 09:59 | Outpatient (RCR) | payer MEDICARE, OTHER | END 2021-05-13 | disposition home or self-care (01) | PROVIDERS: ATTEND Otolaryngology | DX: M25.611 Stiffness of right shoulder, not elsewhere classified (principal); C09.9 Malignant neoplasm of tonsil, unspecified ==

== ENCOUNTER 2021-06-05 09:24 | Outpatient (RCR) | payer MEDICARE, OTHER | END 2021-06-10 | disposition home or self-care (01) | PROVIDERS: ATTEND Otolaryngology | DX: C09.9 Malignant neoplasm of tonsil, unspecified (principal); M25.611 Stiffness of right shoulder, not elsewhere classified; I10 Essential (primary) hypertension; Z98.890 Other specified postprocedural states ==

== ENCOUNTER 2021-07-08 11:15 | Outpatient (RCR) | payer MEDICARE, OTHER | END 2021-07-11 | disposition home or self-care (01) | PROVIDERS: ATTEND Otolaryngology | DX: C09.9 Malignant neoplasm of tonsil, unspecified (principal); M25.611 Stiffness of right shoulder, not elsewhere classified; I10 Essential (primary) hypertension; Z98.890 Other specified postprocedural states ==

== ENCOUNTER 2021-07-29 21:04 | Observation (INO) | payer MEDICARE, OTHER ==
[~2021-07-29] VITALS: Ht 172.7 cm; Wt 70.0 kg
[~2021-07-29 21:04] MED LIST changes: -CHOL200059 PO; -FELO10TA41 PO; -HYDR-3584 PO; -LEVO88TA39 PO; -NS IV 1000 ML 1,000 ML IV ONE; -NS IV 1000 ML 1,000 ML ONE; -TURM500C4 PO; -ZINC50TA58 PO
[2021-07-29 21:11] VITALS: BP 197/71
[2021-07-29] MEDS ORDERED: diphenhydrAMINE 25 MG TAB (BENADRYL) PO PRN (21:15)
[2021-07-29] MEDS ORDERED: LACTULOSE SYRUP 10GM/15ML (ENULOSE) 30ML UDC PO PRN (21:15)
[2021-07-29] MEDS ORDERED: amLODIPine 5 MG (NORVASC) TAB PO ONE (21:15)
[2021-07-29] MEDS ORDERED: MILK OF MAGNESIA 400 MG/5 ML 30 ML UDC PO PRN (21:15)
[2021-07-29] MEDS ORDERED: cloNIDine 0.1 MG (CATAPRES) TAB PO PRN (21:15)
[2021-07-29] MEDS ORDERED: ACETAMINOPHEN 325 MG TABLET PO PRN (21:15)
[2021-07-29] MEDS ORDERED: LOPERAMIDE 2 MG (IMODIUM) TABLET PO PRN (21:15)
[2021-07-29] MEDS ORDERED: BISACODYL 10 MG SUPP (DULCOLAX) PR PRN (21:15)
[2021-07-29] MEDS ORDERED: ONDANSETRON 4 MG (ZOFRAN) ORAL DISSOLVE TAB PO PRN (21:15)
[2021-07-29] MEDS ORDERED: ONDANSETRON 4 MG/2 ML (SDV) Z0FRAN IV PRN (21:15)
[2021-07-29] MEDS ORDERED: ANTACID SUSP 30 ML UDC (MYLANTA) PO PRN (21:15)
[2021-07-29] MEDS ORDERED: PATIENT MAY USE OWN MEDS, ALL PO SCH (21:15)
[2021-07-29] MEDS ORDERED: diphenhydrAMINE 50 MG/ML INJ (BENADRYL) IVP PRN (21:15)
[2021-07-29] MEDS ORDERED: morphine INJ 4 MG/ML 1 ML (VIAL/SYRINGE) IV PRN (21:15)
[2021-07-29] MEDS ORDERED: polyethylene glycoL POWDER 17 GM (MIRALAX) PACK PO PRN (21:15)
[2021-07-29] MEDS ORDERED: CALCIUM CARBONATE 500 MG (TUMS) TAB.CHEW PO PRN (21:15)
[2021-07-29] MEDS ORDERED: MELATONIN 3 MG TABLET PO PRN (21:15)
[2021-07-29] MEDS ORDERED: CHOLESTYRAMINE 4 GM (QUESTRAN LITE, PREVALITE) PKT PO ONE (21:15)
[2021-07-29] MEDS ORDERED: POTASSIUM CHLORIDE INJ 10 MEQ in NS IV 1000 ML 1,000 ML IV SCH (22:00)
[2021-07-29] MEDS: NS IV 1000 ML 1,000 ML IV SCH (22:19)
[2021-07-29 23:13] VITALS: BP 169/76
[2021-07-30 03:30] VITALS: BP 151/68
[2021-07-30 06:26] LABS: BASOPHILS % (AUTO) 0 % (0-10); EOSINOPHILS % (AUTO) 1 % (0-10); HEMATOCRIT 36 % (35-52); HEMOGLOBIN 11.2 g/dL (11.5-16.0); LYMPHOCYTES # (AUTO) 0.8 10^3/uL (1.0-4.0); LYMPHOCYTES % (AUTO) 26 % (12-44); MEAN CORPUSCULAR HEMOGLOBIN 27 pg (25-34); MEAN CORPUSCULAR HGB CONC 31 g/dL (32-36); MEAN CORPUSCULAR VOLUME 89 fL (80-99); MEAN PLATELET VOLUME 12.2 fL (9.0-12.2); MONOCYTES # (AUTO) 0.4 10^3/uL (0.0-1.0); MONOCYTES % (AUTO) 13 % (0-12); NEUTROPHILS # (AUTO) 1.8 10^3/uL (1.8-7.8); NEUTROPHILS % (AUTO) 60 % (42-75); PLATELET COUNT 163 10^3/uL (130-400); WHITE BLOOD COUNT 3.1 10^3/uL (4.3-11.0)
[2021-07-30 06:35] LABS: POTASSIUM 3.5 MMOL/L (3.6-5.0)
[2021-07-30 06:36] LABS: CALCIUM 8.1 MG/DL (8.5-10.1)
[2021-07-30 06:37] LABS: TOTAL PROTEIN 5.4 GM/DL (6.4-8.2)
[2021-07-30 06:39] LABS: BILIRUBIN,TOTAL 0.2 MG/DL (0.1-1.0)
[2021-07-30 06:41] LABS: CREATININE SERUM 0.71 MG/DL (0.60-1.30)
[2021-07-30] MEDS ORDERED: MAGNESIUM 1 GM/100 ML IVPB 100 ML IV ONE (06:45)
[2021-07-30 07:47] VITALS: BP 154/72
[2021-07-30] MEDS: POTASSIUM CL 10MEQ/50ML IVPB 50 ML IV SCH ×4 (08:34→13:16)
[2021-07-30] MEDS: CHOLESTYRAMINE 4 GM (QUESTRAN LITE, PREVALITE) PKT PO SCH ×2 (08:34→13:16)
[2021-07-30] MEDS ORDERED: SENNOSIDES 8.6 MG (SENOKOT) TAB PO SCH (09:00)
[2021-07-30] MEDS ORDERED: DOCUSATE SODIUM 100 MG (COLACE) CAP PO SCH (09:00)
[2021-07-30] MEDS ORDERED: CHOL200059 PO (10:56)
[2021-07-30] MEDS ORDERED: HYDR-3584 PO (10:56)
[2021-07-30] MEDS ORDERED: LEVO88TA39 PO (10:56)
[2021-07-30] MEDS ORDERED: FELO10TA41 PO (10:56)
[2021-07-30] MEDS ORDERED: ZINC50TA58 PO (10:56)
[2021-07-30] MEDS ORDERED: TURM500C4 PO (10:56)
[2021-07-30 11:17] VITALS: BP 177/74
[2021-07-30] MEDS: NS IV 1000 ML 1,000 ML IV SCH (11:37)
--- NOTE | 2021-07-30 11:49 | History & Physical-Hospitalist ---
TOMI MURPHY MED STUDENT 07/30/21 1149: History of Present Illness HPI/Chief Complaint CC: Diarrhea HPI: Miss Church is an 80 yo F and clinic patient of Dr. Ulloa, with a pmh including hypertension, hypothyroidism and tonsillar cancer, presents with diarrhea x3 days, with no relief. Her grandson and great granddaughter had a stomach bug the past week, recovered and then went to visit the patient. She then developed the diarrhea. Normally, immodium works well for her, but this time it did not help at all. She has not eaten anything since Thursday. She tried part of a ham sandwich Thursday, but had diarrhea within twenty minutes. With her diarrhea, poor PO intake and poor nutritional status, she was admitted inpatient. She denies any vomiting or abdominal pain. Is having some nausea. Source: patient Exam Limitations: no limitations Date Seen 07/30/21 Time Seen by a Provider: 09:00 Attending Physician Earlene Klein DO PCP Earlene Klein DO Referring Physician Date of Admission Jul 29, 2021 at 21:05 Home Medications & Allergies Home Medications Reviewed patient Home Medication Reconciliation performed by pharmacy medication reconciliations civil laboratory technician and/or nursing. Patients Allergies have been reviewed. Allergies Allergies Coded Allergies Iodinated Contrast Media (Verified Allergy, Mild, ITCHING, 12/15/18) propoxyphene (Verified Allergy, Unknown, 03/12/21) Past Efgbhct-Xzrxkv-Ypwouj Hx Patient Social History Marrital Status: Number of Children: 3 Employed/Student: retired Tobacco Use?: No Smoking Status: Never a Smoker Smokeless Tobacco Frequency: Never a User Use of E-Cig and/or Vaping dev: No Substance use?: No Alcohol Use?: No Pt feels they are or have been: No Immunizations Up To Date Date of Influenza Vaccine: Apr 13, 2013 First/Initial COVID19 Vaccinat: none Hepatitis A: No Hepatitis B: No PED Vaccines UTD: Yes Date of Pneumonia Vaccine: Jan 12, 2012 Current Status status: No status: No Advance Directives: Unable to obtain Communicates: Verbally Primary Language: Swedish Preferred Spoken Language: Swedish Is interpretation needed?: No Past Medical History Surgeries: Abdominal, Breast, Eye Surgery, Orthopedic, Tonsillectomy Pneumonia, COPD 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 hiatal hernia, gastritis. Hypertension Hyperlipidemia Pulmonary hypertension. COPD Family Medical History Cancer of colon 03 MOTHER Cataract 03 MOTHER Heart disease 09 BROTHER 09 SISTER Kidney disease 09 SISTER Stroke 03 FATHER Cancer (mother- colon cancer, daughter- breast cancer), Stroke (father ) Review of Systems Constitutional: No chills, No dizziness, No fever EENTM: No blurred vision, No double vision Respiratory: No cough, No short of breath Cardiovascular: No chest pain, No palpitations Gastrointestinal: No abdominal pain; diarrhea, nausea; No vomiting Genitourinary: no symptoms reported Physical Exam Physical Exam Vital Signs Vital Signs - First Documented 07/29/21 21:11 Temp 36.7 Pulse 85 Resp 20 B/P (MAP) 197/71 (113) Pulse Ox 98 O2 Delivery Room Air Capillary Refill : Height, Weight, BMI Height: 5'7.00" Weight: 155lbs. 0.0oz. 70.326418ej; 23.47 BMI Method:Stated General Appearance: No Apparent Distress, WD/WN HEENT: No Scleral Icterus (L), No Scleral Icterus (R) Neck: Full Range of Motion, Non Tender; No Lymphadenopathy (L), No Lymphadenopathy (R) Respiratory: Chest Non Tender, Lungs Clear, Normal Breath Sounds, No Accessory Muscle Use Cardiovascular: Regular Rate, Rhythm, No Edema, No Murmur, Normal Peripheral Pulses Gastrointestinal: Normal Bowel Sounds, Non Tender, Soft Extremity: Normal Capillary Refill Neurologic/Psychiatric: Alert, Oriented x3 Skin: Normal Color, Warm/Dry Lymphatic: No Adenopathy Results Results/Procedures Labs Laboratory Tests 07/30/21 06:12 Patient resulted labs reviewed. Assessment/Plan Admission Diagnosis Diarrhea, dehydration Assessment and Plan Assessment - Acute onset diarrhea - dehydration - poor nutritional status - leukopenia - hypokalemia - hypomagnesemia Plan - electrolyte replacement - blood pressure control - IVF - Advance to regular diet as tolerated - Pending stool cultures - negative C. diff - negative fecal occult blood test EARLENE KLEIN DO 07/31/21 0538: History of Present Illness HPI/Chief Complaint CC: Dehydration HPI: This is an 80 yr old clinic pt of mine with a past medical history of tonsillar cancer last year managed at . She presented to the hospital after failed 2L of IV fluid due to dehydration from severe diarrhea. She did very well overall and is waiting to see if a regular diet starts the diarrhea again. Source: patient Exam Limitations: no limitations Past Pecolgr-Lpeivt-Emoiln Hx Patient Social History Marrital Status: Employed/Student: retired Smoking Status: Former Smoker Smokeless Tobacco Frequency: Never a User Past Medical History Surgeries: Breast, Eye Surgery, Orthopedic, Tonsillectomy Pneumonia, COPD Hypertension Gastroesophageal Reflux Hypothyroidsim Family Medical History Cancer of colon 03 MOTHER Cataract 03 MOTHER Heart disease 09 BROTHER 09 SISTER Kidney disease 09 SISTER Stroke 03 FATHER Review of Systems Constitutional: see HPI Gastrointestinal: diarrhea Physical Exam Physical Exam General Appearance: No Apparent Distress, Chronically ill Eyes: Right Eye Normal Inspection, Right Eye PERRL HEENT: PERRL/EOMI, Normal ENT Inspection, Pharynx Normal, Moist Mucous Membranes Neck: Full Range of Motion, Normal Inspection, Non Tender Respiratory: Chest Non Tender, Lungs Clear, Normal Breath Sounds, No Accessory Muscle Use, No Respiratory Distress Cardiovascular: Regular Rate, Rhythm, No Edema, No Gallop, No JVD, No Murmur, Normal Peripheral Pulses Gastrointestinal: Normal Bowel Sounds, No Organomegaly, No Pulsatile Mass, Non Tender, Soft Back: Normal Inspection, No CVA Tenderness, No Vertebral Tenderness Extremity: Normal Capillary Refill, Normal Inspection, Normal Range of Motion, Non Tender, No Calf Tenderness, No Pedal Edema Neurologic/Psychiatric: Alert, Oriented x3, No Motor/Sensory Deficits, Normal Mood/Affect Skin: Normal Color, Warm/Dry Lymphatic: No Adenopathy Assessment/Plan Admission Diagnosis Dehydration Viral diarrhea Hypertension Hypothyroidism Discharge home Admission Status: Observation Supervisory-Addendum Brief Verification & Attestation Participated in pt care: history, MDM, physical Personally performed: exam, history, MDM, supervision of care Care discussed with: Medical Student Procedures: n/a Results interpretation: Verified all documentation Verification and Attestation of Medical Student E/M Service A medical student performed and documented this service in my presence. I reviewed and verified all information documented by the medical student and made modifications to such information, when appropriate. I personally performed the physical exam and medical decision making. Earlene Klein, Jul 31, 2021,05:38 TOMI MURPHY MED STUDENT Jul 30, 2021 11:49 EARLENE KLEIN DO Jul 31, 2021 05:38
[2021-07-30] MEDS ORDERED: hydrOXYzine (ATARAX) 10 MG TAB PO PRN (12:45)
[2021-07-30 15:35] VITALS: BP 149/75
[2021-07-30 17:52] VITALS: BP 149/75
[2021-07-30] MEDS ORDERED: amLODIPine 10 MG (NORVASC) TAB PO SCH (21:00)
[2021-07-30] MEDS ORDERED: FELODIPINE 10 MG PO SCH (21:00)
[2021-07-31] MEDS ORDERED: LEVOTHYROXINE 88 MCG (LEVOTHORID) TAB PO SCH (06:30)
[2021-07-31] MEDS ORDERED: ASPIRIN 81 MG CHEW (CHILDREN'S ASA) PO SCH (09:00)
[2021-07-31] MEDS ORDERED: LEVOTHYROXINE 75 MCG (LEVOTHROID) TABLET PO SCH (09:00)
[2021-07-31] MEDS ORDERED: amLODIPine 5 MG (NORVASC) TAB PO SCH (09:00)
== END 2021-07-30 17:53 | disposition home or self-care (01) ==
LOC: 4TH 21:05
PROVIDERS: ADMIT Internal Medicine; ATTEND Internal Medicine
DX: E86.0 Dehydration (principal); R19.7 Diarrhea, unspecified; D72.819 Decreased white blood cell count, unspecified; E87.6 Hypokalemia; E83.42 Hypomagnesemia; E03.9 Hypothyroidism, unspecified; I10 Essential (primary) hypertension; Z85.818 Personal history of malignant neoplasm of other sites of lip, oral cavity, and pharynx
CPT/HCPCS: 36415; 80053; 82274; 83735; 85025; 87015; 87045; 87046; 87324; 87449; 87899; 96374; 96375; 96376; G0378

== ENCOUNTER → 2021-07-29 | Outpatient (CLI) | payer MEDICARE, OTHER ==
[~2021-07-29] VITALS: Ht 173 cm; Wt 36.9 kg
[~2021-07-29] MED LIST changes: +CHOL200059 PO; +FELO10TA41 PO; +HYDR-3584 PO; +LEVO88TA39 PO; +NS IV 1000 ML 1,000 ML IV ONE; +NS IV 1000 ML 1,000 ML ONE; +TURM500C4 PO; +ZINC50TA58 PO
[2021-07-29 16:21] VITALS: BP 179/82
[2021-07-29 20:44] VITALS: BP 179/82
== END | disposition home or self-care (01) ==
LOC: SDC 15:56
PROVIDERS: ATTEND Internal Medicine
DX: E86.0 Dehydration (principal)

== ENCOUNTER 2022-01-15 11:43 | Outpatient (CLI) | payer MEDICARE, OTHER ==
[~2022-01-15] VITALS: Ht 172.7 cm; Wt 70.0 kg
[~2022-01-15 11:43] MED LIST changes: +CHOL200059 PO; +FELO10TA41 PO; +HYDR-3584 PO; +LEVO88TA39 PO; +TURM500C4 PO; +ZINC50TA58 PO
[2022-01-17] MEDS ORDERED: MECO10005 PO (08:43)
[2022-01-17] MEDS ORDERED: ZINC50TA51 PO (08:44)
== END 2022-01-17 11:17 | disposition home or self-care (01) ==
LOC: PREOP 11:43
PROVIDERS: ATTEND Surgery
DX: Z01.818 Encounter for other preprocedural examination (principal)

== ENCOUNTER 2022-01-22 11:50 | Day surgery (SDC) | payer MEDICARE, OTHER ==
[~2022-01-22] VITALS: Ht 172.7 cm; Wt 70.0 kg
[~2022-01-22 11:50] MED LIST changes: +MECO10005 PO; +ZINC50TA51 PO
[2022-01-22] MEDS ORDERED: LACTATED RINGERS 1,000 ML IV STA (12:04)
[2022-01-22 12:20] VITALS: BP 163/80
--- NOTE | 2022-01-22 12:55 | Progress Note-Pre Operative ---
Pre-Operative Progress Note Date of Available H&P: Jan 22, 2022 Date H&P Reviewed: Jan 22, 2022 Time H&P Reviewed: 12:30 History & Physical: No changes noted Pre-Operative Diagnosis: screening,FH RANCHO SEBASTIAN MD Jan 22, 2022 12:55
--- NOTE | 2022-01-22 12:56 | Discharge Inst-Surgical ---
D/C Lap Instructions-ROMULO Follow Up Activity as tolerated High Fiber Diet 25g or more per day Avoid Alcohol, Caffeine, Spicy [place] and Acid foods. Drink 64 fluid oz or more of fluids per day. Symptoms to Report: Fever over 101 degree F, Nausea/Vomiting If any problems/questions: Contact your physician or go to Emergency Room RANCHO SEBASTIAN MD Jan 22, 2022 12:56
[2022-01-22] MEDS ORDERED: ONDANSETRON 4 MG (ZOFRAN) ORAL DISSOLVE TAB PO PRN (13:00)
[2022-01-22] MEDS ORDERED: ONDANSETRON 4 MG/2 ML (SDV) Z0FRAN IVP PRN (13:00)
[2022-01-22] MEDS ORDERED: LIDOCAINE JELLY 2% 6 ML SYRINGE MM PRN (13:30)
[2022-01-22] MEDS ORDERED: PROPOFOL INJECTION 50 ML IV ONE (13:33)
[2022-01-22 14:20] VITALS: BP 177/99
[2022-01-22 14:25] VITALS: BP 127/58
[2022-01-22 14:30] VITALS: BP 121/60
--- NOTE | 2022-01-22 14:30 | Anesthesia-General Post-Op ---
MAC Patient Condition Mental Status/LOC: Same as Preop Cardiovascular: Satisfactory Nausea/Vomiting: Absent Respiratory: Satisfactory Pain: Controlled Complications: Absent Post Op Complications Complications None Follow Up Care/Instructions Patient Instructions None needed. Anesthesiology Discharge Order Discharge Order Patient is doing well, no complaints, stable vital signs, no apparent adverse anesthesia problems. No complications reported per nursing. CORNELIUS INTERIANO CRNA Jan 22, 2022 14:30
[2022-01-22 14:55] VITALS: BP 160/75
[2022-01-22 15:16] VITALS: BP 160/75
--- NOTE | 2022-01-23 00:14 | OPERATIVE REPORT ---
DATE OF SERVICE: 01/22/2022 ATTENDING PRIMARY CARE PHYSICIAN: Earlene Steen DO PREOPERATIVE DIAGNOSIS: Screening colonoscopy with family history of colon cancer. POSTOPERATIVE DIAGNOSES: Chronic stage II external and internal hemorrhoids, two small rectal ulcers of unknown etiology. PROCEDURE: colonoscopy with biopsy. SURGEON: Rancho Rivera MD ANESTHESIA: Monitored anesthesia care. ESTIMATED BLOOD LOSS: Minimal. FINDINGS: Chronic stage II external and internal hemorrhoids, two small rectal ulcers of unknown etiology. DISPOSITION: The patient tolerated the procedure well. INDICATIONS: The patient is an 81-year-old female referred over to us for screening colonoscopy. Her last one was approximately 10 years ago and she believes this to be normal. She does not report any major issues with diarrhea nor constipation as well as no red blood per rectum nor any dark tarry stools. She reports that her family history encompasses her mother being diagnosed with colon cancer at age 83. DESCRIPTION OF PROCEDURE: The patient was brought to the endoscopy suite, laid in the left lateral decubitus position. After adequate IV pain and sedative medications and monitored anesthesia care, a digital rectal examination was performed. Chronic stage II external and internal hemorrhoids were identified, which were not actively edematous nor inflamed and no bleeding. Normal sphincter tone was felt and there were no palpable masses. The endoscope was then intubated into the anus and rectum gently insufflated. The endoscope was then advanced to the valves of Fink of the rectum, at the distal rectum, there were 2 very small ulcers. No other ulcerations were identified throughout the remainder of the rectum and colon. This may be an isolated incidence and may have just been due to the colonic prep. A biopsy was taken of one of these areas with forceps with visualization of good hemostasis. The endoscope was then advanced through the sigmoid colon where no diverticulosis identified. We then proceeded through the remainder of the descending, transverse and ascending colon to the cecum, which were normal. There were no polyps or any neoplasms identified. There was also no other mucosal inflammatory changes. The endoscope was then slowly withdrawn while taking a second look and suctioning of residual air with no additional findings. The patient tolerated the procedure well. We will recommend continued medical management with a high-fiber diet with a fiber supplement, which should equal or exceed 25 grams daily to promote soft consistency stools on a daily basis. Due to her first-degree family history of colon cancer, we will recommend a followup colonoscopy in approximately 5 years. Job ID: [id number] DocumentID: [id number] Dictated Date: 01/22/2022 14:26:12 Lumber Puller Date: 01/23/2022 00:13:40 Dictated By: RANCHO RIVERA MD MTDD
== END 2022-01-22 15:15 | disposition home or self-care (01) ==
LOC: ENDO 11:50
PROVIDERS: ATTEND Surgery
DX: Z12.11 Encounter for screening for malignant neoplasm of colon (principal); K62.1 Rectal polyp; K62.6 Ulcer of anus and rectum; K64.1 Second degree hemorrhoids; K64.4 Residual hemorrhoidal skin tags; Z80.0 Family history of malignant neoplasm of digestive organs; Z85.89 Personal history of malignant neoplasm of other organs and systems; Z28.310 Unvaccinated for COVID-19

== ENCOUNTER → 2022-09-15 | Outpatient (CLI) | payer MEDICARE, OTHER | LOC: CARD 13:30 | PROVIDERS: ATTEND Physician Assistant | DX: I08.1 Rheumatic disorders of both mitral and tricuspid valves (principal); I11.9 Hypertensive heart disease without heart failure; I25.10 Atherosclerotic heart disease of native coronary artery without angina pectoris | CPT/HCPCS: 93306 ==

== ENCOUNTER → 2022-10-01 | Outpatient (CLI) | payer MEDICARE, OTHER ==
[~2022-10-01] MED LIST changes: -LOSA100T57 PO; +LOSA100T58 PO
[2022-10-01 14:49] VITALS: BP 196/84
--- NOTE | 2022-10-01 16:04 | Cardiology Stress Test Report ---
Stress Test Report Date of Procedure/Referring: Date of Procedure: Oct 01, 2022 PCP Earlene Steen DO Admitting Physician Admitting Physician: Attending Physician: Radha Gallagher Indications: CAD Baseline Heart Rate: 69 Baseline Blood Pressure: Blood Pressure Systolic: 196 Blood Pressure Diastolic: 84 Baseline EKG: Baseline EKG: RBBB Summary/Conclusion: Summary: In summary, the patient started exercising with a baseline heart rate, blood pressure and EKG mentioned above Patient was able to exercise for a total of 4 minutes on Korey protocol, METs 5.8 Maximum heart rate 126 Maximum blood pressure 201/95 Stress EKG, Minimal nondiagnostic changes Recovery EKG , Return to baseline Conclusion: Fair exercise tolerance for 4 minutes on standard Korey protocol, 5.8 METS achieving 90% of maximal expected heart rate Baseline hypertension with hypertensive response to exercise with peak blood pressure 201/95 return to baseline during recovery Baseline right bundle branch block with minimal nondiagnostic EKG changes with exercise return to baseline during recovery Occasional PVCs noted during stress test otherwise no arrhythmia detected. Copy Copies To 1: EARLENE STEEN BASHAR J MD Oct 01, 2022 16:04
== END ==
LOC: CARD 14:09
PROVIDERS: ATTEND Physician Assistant
DX: I25.10 Atherosclerotic heart disease of native coronary artery without angina pectoris (principal)
CPT/HCPCS: 93017